=== PATIENT | female | born 1945 | race Caucasian/White ===

== ENCOUNTER 2023-09-27 12:08 | Emergency (ER) | payer MEDICARE, OTHER, SELFPAY ==
[2023-09-27 12:11] VITALS: BP 145/74
--- NOTE | 2023-09-27 13:28 | ED.GENMED ---
History of Present Illness
General
Chief Complaint: Musculo-Skeletal Complaint
Source: patient and spouse
Exam Limitations: none
Time Seen by Provider: 09/27/23 12:34
Nursing documentation reviewed up to this point in time: agreed with
Travel History
Have you had any contact with someone who has COVID-19?: No
Do you have any symptoms of coronavirus? Fever > 100 degrees, chills, cough, shortness of breath, sore throat, loss of taste or smell, muscle aches, or headache?: No
History of Present Illness
History of Present Illness:
78-year-old female with past medical history of hypothyroidism who presents to the emergency department with her for evaluation of left facial pain. Patient reports that she has had this issue for a year or 2�initially she says that she
thought it was related to an issue with a left lower tooth which was extracted about a year ago. She had transient improvement in her symptoms but over the past few months they have returned and over the past month in particular have become more
intense and more frequent. Today she says she had greater than 10 episodes of this pain and finally came to the emergency room to be assessed. Pain is located in the left lower face along the jawline. She describes a sharp, 'electric shock' pain
which is 10/10 intensity but only last for a second or 2. There is no clear trigger and no relieving factors noted�she was prescribed gabapentin which has not helped and in fact symptoms have been worsening while on gabapentin. She denies any jaw
claudication or pain with chewing. She denies any dental trauma. She denies any radiation of the pain to the neck or the chest. She denies any change in her vision. She says that in between episodes she has no symptoms at all�no numbness or
paresthesias and she has not had any rash. She denies any other complaints. She says she is supposed to see a neurologist but was not able to get an appointment for months.
Review of Systems
Review of Systems
All Other Systems: ROS reviewed and negative except as documented in HPI and ROS
Constitutional: Denies fever or chills
EENT: Reports other (Facial pain); Denies sore throat or runny nose
Respiratory: Denies cough or trouble breathing
Cardiac: Denies chest pain or palpitations
ABD/GI: Denies abdominal pain, nausea or vomiting
: Denies flank pain
Musculoskeletal: Denies neck pain or back pain
Neurological: Denies headache, weakness or numbness
Phy Exam
Physical Exam
Physical Exam:
General: Awake, alert, oriented x3; no acute distress
Head: Normocephalic, atraumatic; she has no facial swelling or reproducible tenderness including along the TMJ joint
Eyes: Conjunctiva normal, EOMI, pupils equal round and reactive to light bilateral
Ears: TMs clear bilaterally, no swelling or tenderness of the mastoid processes
Throat: Airway intact, handling secretions; patient has good dentition, no tenderness to percussion of any teeth on the left side in the area of concern, no dental caries
Neck: Trachea midline, supple without meningismus
Lungs: Clear to auscultation bilaterally, no wheezing, rales, rhonchi
Heart: Regular rate and rhythm, no murmurs, gallops, or rubs
Neuro: Cranial nerves intact 2 through 12, speech fluid with no dysarthria, motor and sensory function intact in all extremities
Skin: no rash
Extremities: Warm and well-perfused
Scores
Heart Failure Risk
Heart Failure Risk Score: Not Applicable
Heart Score for Chest Pain Patients
STEMI patient?: Not applicable
Withdrawal Assessment of Alcohol
Withdrawal Assessment Completed?: Not applicable
Course
Orders/Labs/Results
Orders:
Orders
09/27/23 12:14
EKG [Electrocardiogram (*1)] Urgent
Reason for Study: Fatigue / Weakness
09/27/23 12:15
EKG- Treatment ONCE
09/27/23 12:41
Electrocardiogram (*1) Urgent
Reason for Study: Other
Other Reason for Exam: jaw pain
09/27/23 13:22
MR Brain W/o & With Contrast Urgent
Reason For Exam: left facial pain, headache (requested by neurology
Recent pill cam endoscopy?: No
09/27/23 13:23
NEUROLOGY CONSULT Urgent
Consulting Provider: La Nena Bernstein
Was physician already notified: Yes
Carbamazepine [Tegretol] 100 mg PO ONCE ONE
09/27/23 13:29
Complete Blood Count/With Diff Urgent
Comprehensive Metabolic Panel Urgent
Troponin I Urgent
09/27/23 15:31
[facility] [[facility]] Routine
Comment:
Reason For Exam: rule out MVA
OK for patient to be off Cardiac Monitoring for MRI: No
Recent pill cam endoscopy?: No
Abnormal Lab Results
09/27/23
13:29
MPV 11.1 H fL
(7.4-10.4)
Lymphocytes % 19.2 L %
(20.5-51.1)
BUN 26 H mg/dl
(7-17)
Glucose 104 H mg/dl
(70-99)
09/27/23 13:29
09/27/23 13:29
Vital Signs
Initial and Last Documented VS:
Initial Vital Signs
Temp Pulse Resp BP Pulse Ox
36.6 C 61 16 145/74 100
09/27/23 12:11 09/27/23 12:11 09/27/23 12:11 09/27/23 12:11 09/27/23 12:11
Last Documented Vital Signs
Temp Pulse Resp BP Pulse Ox
36.6 C 59 18 133/73 98
09/27/23 12:11 09/27/23 16:00 09/27/23 14:38 09/27/23 16:19 09/27/23 16:00
MDM/Problems Addressed
Differential Diagnosis Includes:
TMJ, trigeminal neuralgia, dental abscess
MDM/Problems Addressed:
78-year-old female presents for intermittent intense pains in the left lower face�has had this issue sporadically for a year to but much more intense over the past month and much more frequent recently. Today had over 10 episodes. She has been
started on gabapentin but this has not been controlling her symptoms. She has been scheduled to see a neurologist but not for a few months. Vital signs here significant for marginal hypertension otherwise unremarkable. Physical exam as above.
Case discussed with neurology they will evaluate at bedside requesting order for MRI brain, will place an IV send basic labs. Will treat with Tegretol. Reassess after the above.
Labs reviewed and show no clinically significant abnormalities. MRI done awaiting read. Neurology evaluated patient�if MRI normal recommended starting patient on Tegretol 100 mg twice daily with titration to 200 mg twice daily as tolerated based
on facial pain level. Recommending continuing gabapentin 300 mg nightly with ultimate plan to wean off of this. Also recommended sumatriptan 3 mg subcu as needed for rescue therapy. They will follow-up with patient as outpatient in 2 to 3 weeks.
Patient very comfortable with this plan, will monitor pending MRI read.
MRI patient found to have incidental finding of meningioma but no clinically significant abnormalities. Discussed with neurology will discharge with outpatient follow-up in the next 2 to 3 weeks with medication plan as above. I discussed this with
patient she feels very comfortable this plan. Spoke about return precautions all questions answered.
*Radiology
Radiology exam reviewed: radiology read reviewed
*Pulse Oximetry
Patient hypoxic: no
*EKG
Interpreted by ED Provider?: Yes
Heart Rate: 55
Rate: normal
Rhythm: sinus
Simms: normal axis
Interval: normal interval
QRS Pattern: normal QRS
Ischemia: no ischemia (Baseline wander)
*Critical Care Note
Total Time (30-74mins, 75-104mins- exclusive of procedures): Not Applicable
Data Reviewed
Source: patient and spouse
Patient Management
Discussion with other providers: Certified Hyperbaric Technician (Discussed with neurology)
ED Attending Note
-
Portions of this chart may have been created with voice recognition software.� Occasional wrong word or��sound alike� substitutions may have occurred due to the inherent limitations of voice recognition software.
Discharge Plan
Departure
Patient Disposition: Home (Routine Discharge)
Date of Disposition: 09/27/23
Time of Disposition: 17:01
Patient with high blood pressure during this ER visit?: Yes
Discharge Problem:
Trigeminal neuralgia
Instructions: Trigeminal neuralgia
Prescriptions:
New
carbamazepine 200 mg tablet
100 mg PO BID Qty: 60 0RF
sumatriptan succinate 3 mg/0.5 mL pen injector
3 mg SC Q1H PRN (Reason: migraine headache) Qty: 2 0RF
No Action
acitretin 10 MG capsule
20 mg PO DAILY
levothyroxine [Levoxyl] 88 MCG tablet
88 mcg PO DAILY
vitamin B complex 1 TAB tablet
1 tab PO DAILY
cholecalciferol (vitamin D3) 2,000 UNITS tablet
2,000 units PO DAILY
Biotin
1 tab PO DAILY
Calcium
1,000 mg PO DAILY
Patient Comments:
with magnesium
mupirocin 1 APPLIC ointment
1 applic topical BID Qty: 1 0RF
sennosides [senna] 1 TABLET tablet
2 tab PO BID PRN (Reason: constipation) 0RF
acetaminophen 325 MG tablet
650 mg PO Q4HWA 0RF
aspirin 325 MG tablet
325 mg PO DAILY 0RF
Rx Instructions:
take with food
prochlorperazine maleate 5 MG tablet
5 mg PO Q6HPRN PRN (Reason: nausea/vomiting) Qty: 30 0RF
pantoprazole 40 MG tablet,delayed release (DR/EC)
40 mg PO HS Qty: 30 0RF
prednisone 10 MG tablet
40 mg PO TAPER Qty: 20 0RF
Rx Instructions:
take with food
tramadol 50 MG tablet
50 mg PO Q6HPRN PRN (Reason: moderate-severe pain) Qty: 50 0RF
Rx Instructions:
1 tab moderate pain or 2 if pain severe
Dx joint replacement
ongoing therapy
tizanidine 4 MG tablet
4 mg PO HS Qty: 10 0RF
nabumetone 750 MG tablet
750 mg PO DAILY Qty: 0 0RF
Rx Instructions:
RESUME WHEN PREDNISONE IS D/C
TAKE WITH FOOD
Referrals:
Chiara Pineda PA [Family Provider] -
La Nena Bernstein MD [Active] - Call in 1-3 days for appt
Activity Restrictions/Additional Instructions:
Thank you for visiting the Emergency Department at [facility].
1. Please schedule a follow up appointment as directed. Call first thing tomorrow morning to make an appointment.
2. If indicated, please take your medications as instructed and indicated on discharge paperwork.
3. If any of your symptoms do not improve, or persist, or become more severe within 6-12 hours, please return to the emergency department for further care.
4. Please return to the emergency department if you develop a headache, neck pain/stiffness, fever greater than 100.4F, chest pain, shortness of breath, persistent nausea, vomiting, slurred speech, difficulty walking, numbness/tingling, weakness,
signs of infection or any other symptoms that are worrisome to you.
Please call [phone] if you have any questions.
Interventions
Interventions:
*Risk Screen - Suicide Last Done: 09/27/23 12:11
*General Assessment Last Done: 09/27/23 12:11
*Neglect/Abuse Screening Last Done: 09/27/23 12:11
*ED COVID-19 Vaccine History Last Done: 09/27/23 14:38
ED-Musculoskeletal Assessment Last Done: 09/27/23 16:00
[2023-09-27 13:42] LABS: % Basophils 0.7 % (0-2); % Eosinophils 1.6 % (0-6); % Immature Granulocytes 0.2 % (0-0.5); % Lymphocytes 19.2 % (20.5-51.1); % Monocytes 4.9 % (1.7-9.3); % Neutrophils 73.4 % (42.2-75.2); Absolute Basophils 0.1 10^3/uL (0-0.2); Absolute Eosinophils 0.1 10^3/uL (0-0.7); Absolute Lymphocytes 1.6 10^3/uL (1.2-3.4); Absolute Monocytes 0.4 10^3/uL (0.1-0.6); Absolute Neutrophils 6.1 10^3/uL (1.4-6.5); Hematocrit 40.5 % (37.0-47.0); Hemoglobin 13.7 g/dL (12.0-16.0); Mean Corp Hgb Conc. 33.8 g/dL (33.0-37.0); Mean Corpuscular Hgb 29.9 pg (27.0-31.0); Mean Corpuscular Volume 88.4 fL (81.0-99.0); Mean Platelet Volume 11.1 fL (7.4-10.4); Nucleated Red Blood Cells % 0 %; Platelet Count 191 10^3/uL (130-400); Red Blood Cell Count 4.58 10^6/uL (4.20-5.40); Red Cell Dist. Width 12.2 % (11.5-14.5); White Blood Cell Count 8.3 10^3/uL (4.8-10.8)
[2023-09-27 13:56] LABS: ALT (SGPT) 22 U/L (0-35); AST (SGOT) 29 U/L (14-36); Albumin 4.3 g/dl (3.5-5.0); Alkaline Phosphatase 57 U/L (38-126); Blood Urea Nitrogen 26 mg/dl (7-17); Calcium 9.1 mg/dl (8.4-10.2); Carbon Dioxide 25 mmol/L (22-30); Chloride 107 mmol/L (98-107); Glucose 104 mg/dl (70-99); Potassium 5.1 mmol/L (3.5-5.1); Sodium 137 mmol/L (135-145); Total Bilirubin 0.6 mg/dl (0.2-1.3); Total Protein 6.4 g/dl (6.3-8.2); eGFR > 60.00
[2023-09-27 14:05] LABS: Troponin I < 0.012 ng/ml
[2023-09-27] MEDS: TEGRETOL 100 MG PO (14:24)
[2023-09-27 14:38] VITALS: BP 139/78
--- NOTE | 2023-09-27 14:56 | CON.NEURO ---
Consultation
Order
Date of Consultation: 09/27/23
Reason for Consult: Trigeminal neuralgia
Neurology consultation note
CC: Facial pain
HPI: This is a 78-year-old left-handed woman who presented to [facility] on September 27, 2023 for an evaluation and management of facial pain. According to the patient she has had intermittent short lasting stabbing severe left
maxillary pain that she has had over the last several years. No clear triggers. The pain had improved after left upper molar extraction however returned several weeks ago. The pain has been refractory to recently prescribed gabapentin leading the
patient to seek medical attention. No reports of dysphagia, dysphonia, diplopia weakness, change in balance, ipsilateral cranial autonomic symptoms.
ER VS: 145/74, 61, afebrile
PDMP:Acetaminophen-Cod #3 15 tabs filled in on 08/22/2022.
Labs: Sodium�normal, glucose�104, normal WBCs, calcium.
PMH: h/o melanoma, papillary thyroid carcinoma, psoriasis, migraine without aura, HTN, DLP, hypothyroidism, OA, BL SNHL
PSH: Bilateral cataract surgery R TKA, thyroidectomy, appendectomy, cholecystectomy, left shoulder rotator cuff repair; Mohs procedure
SH: , retired educator, non-smoker, plus social alcohol use.
FH: Coronary artery disease
All: Sulfas, aspartame
ROS:Constitutional: Negative. Negative for chills, fever and unexpected weight change.
HENT: Positive for chronic hearing impairment and tinnitus
Eyes: Negative. Negative for photophobia, pain and visual disturbance.
Respiratory: Negative for cough, choking and shortness of breath.
Cardiovascular: Negative for chest pain, palpitations and leg swelling.
Gastrointestinal: Negative for abdominal pain and vomiting.
Endocrine: Negative. Negative for cold intolerance.
Genitourinary: Negative for dysuria, flank pain and urgency.
Musculoskeletal: Positive for arthralgias
Skin: Negative for rash.
Allergic/Immunologic: Negative. Negative for immunocompromised state.
Neurological: Positive for chronic left V2 pain and intermittent migraine
Psychiatric/Behavioral: Negative for behavioral problems, confusion and hallucinations.
General: Well developed. In moderate distress due to pain
Cardio: Regular rate and rhythm without murmur. Extremities are without cyanosis or edema.
Neuro:
Mental Status: Alert, oriented to person, place, and date. Normal attention and recall. Good fund of knowledge. Follows complex requests across the midline. Comprehension, naming, and repetition intact. Immediate and delayed recall 3/3.
Cranial Nerves: . Pupils are equally round, surgical. EOMs full. Visual ibrahim full to confrontation. No ptosis. No nystagmus. V1-V3 intact to light touch and pinprick bilaterally, symmetric. Face symmetric. Poor hearing AU. The palate
elevated well. SCMs and traps 5/5. Tongue midline. No dysarthria.
Motor: Normal bulk and tone. No pronator or arm drift. Strength 5/5 throughout. No clonus.
Reflexes: 2+ throughout the upper extremities and knees. Plantar responses flexor bilaterally.
Sensory: Normal LT
Coordination: No dysmetria or tremor.
Gait: deferred
Assessment and Plan:
I. 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
short-lasting unilateral neuralgiform headache.
II. Migraine with aura
III. History of melanoma, papillary thyroid carcinoma
-Please start Tegretol 100 mg twice daily with titration to 200 mg twice daily as tolerated based on facial pain level. Most common side effects of Tegretol including Felix-Hunter syndrome were discussed.
-Monitor for hyponatremia, granulocytopenia
-Continue Neurontin 300 mg nightly with a plan to wean off (goal is monotherapy)
-Sumatriptan 3 mg SubQ PRN for rescue therapy PRN
-MRI of the brain with gadolinium/MRA of the head without gadolinium to rule out cerebellopontine angle tumor/mets, arteriovenous malformation
-Outpatient neurology follow-up in 2 to�3 weeks.
I personally reviewed all radiology and labs along with past medical records pertinent to current medical problems. Total time spent in patient care is 60 minutes.
Thank you for allowing us to participate in the care of this patient. We will continue to follow. Please do not hesitate to contact us with any questions or concerns.
Subjective/Objective
Subjective Data
Date of Service: September 27, 2023
Objective Data
Vital Signs
Temp Pulse Resp BP Pulse Ox
36.6 C 65 18 139/78 98
09/27/23 12:11 09/27/23 14:38 09/27/23 14:38 09/27/23 14:38 09/27/23 14:38
Lab Results
09/27/23 13:29
09/27/23 13:29
Sodium 137 mmol/L (135-145) 09/27/23 13:29
Potassium 5.1 mmol/L (3.5-5.1) 09/27/23 13:29
BUN 26 mg/dl (7-17) H 09/27/23 13:29
Glucose 104 mg/dl (70-99) H 09/27/23 13:29
Calcium 9.1 mg/dl (8.4-10.2) 09/27/23 13:29
Patient Allergies
aspartame [Aspartame] Allergy (Verified 09/27/23 12:10)
headache
Sulfa (Sulfonamide Antibiotics) Allergy (Verified 09/27/23 12:10)
headache
sulfabenzamide Allergy (Verified 09/27/23 12:10)
HEADACH
sulfisoxazole Allergy (Verified 09/27/23 12:10)
headache
Medications
-
Home Medications
Medication Instructions Recorded
Biotin 1 tab PO DAILY 05/23/21
Calcium 1,000 mg PO DAILY 05/23/21
acitretin 10 mg capsule 20 mg PO DAILY 05/23/21
cholecalciferol (vitamin D3) 50 2,000 units PO DAILY 05/23/21
mcg (2,000 unit) tablet
levothyroxine 88 mcg tablet 88 mcg PO DAILY 05/23/21
(Levoxyl)
vitamin B complex 1 tab PO DAILY 05/23/21
mupirocin 2 % topical ointment 1 applic topical BID #1 tube 05/25/21
acetaminophen 325 mg tablet 650 mg PO Q4HWA 06/15/21
aspirin 325 mg tablet 325 mg PO DAILY 06/15/21
nabumetone 750 mg tablet 750 mg PO DAILY ##0 06/15/21
pantoprazole 40 mg tablet,delayed 40 mg PO HS #30 tabs 06/15/21
release
prednisone 10 mg tablet 40 mg PO TAPER ##20 06/15/21
prochlorperazine maleate 5 mg 5 mg PO Q6HPRN PRN nausea/vomiting 06/15/21
tablet #30 tabs
sennosides 8.6 mg tablet (senna) 2 tab PO BID PRN constipation 06/15/21
tizanidine 4 mg tablet 4 mg PO HS #10 tabs 06/15/21
tramadol 50 mg tablet 50 mg PO Q6HPRN PRN 06/15/21
moderate-severe pain #50 tabs
Vital Signs and Labs
-
Vital Signs and Labs:
Vital Signs
Temp Pulse Resp BP Pulse Ox
36.6 C 65 18 139/78 98
09/27/23 12:11 09/27/23 14:38 09/27/23 14:38 09/27/23 14:38 09/27/23 14:38
Lab Results
09/27/23 13:29
09/27/23 13:29
Sodium 137 mmol/L (135-145) 09/27/23 13:29
Potassium 5.1 mmol/L (3.5-5.1) 09/27/23 13:29
BUN 26 mg/dl (7-17) H 09/27/23 13:29
Glucose 104 mg/dl (70-99) H 09/27/23 13:29
Calcium 9.1 mg/dl (8.4-10.2) 09/27/23 13:29
Home Medications
-
Home Medications
Biotin 1 tab PO DAILY 05/23/21
Calcium 1,000 mg PO DAILY 05/23/21
acitretin 10 mg capsule 20 mg PO DAILY 05/23/21
cholecalciferol (vitamin D3) 50 mcg (2,000 unit) tablet 2,000 units PO DAILY 05/23/21
levothyroxine 88 mcg tablet (Levoxyl) 88 mcg PO DAILY 05/23/21
vitamin B complex 1 tab PO DAILY 05/23/21
mupirocin 2 % topical ointment 1 applic topical BID #1 tube 05/25/21
acetaminophen 325 mg tablet 650 mg PO Q4HWA 06/15/21
aspirin 325 mg tablet 325 mg PO DAILY 06/15/21
nabumetone 750 mg tablet 750 mg PO DAILY ##0 06/15/21
pantoprazole 40 mg tablet,delayed release 40 mg PO HS #30 tabs 06/15/21
prednisone 10 mg tablet 40 mg PO TAPER ##20 06/15/21
prochlorperazine maleate 5 mg tablet 5 mg PO Q6HPRN PRN nausea/vomiting #30 tabs 06/15/21
sennosides 8.6 mg tablet (senna) 2 tab PO BID PRN constipation 06/15/21
tizanidine 4 mg tablet 4 mg PO HS #10 tabs 06/15/21
tramadol 50 mg tablet 50 mg PO Q6HPRN PRN moderate-severe pain #50 tabs 06/15/21
[2023-09-27 16:00] VITALS: BMI 29.3
[2023-09-27 16:19] VITALS: BP 133/73
[2023-09-27 17:00] VITALS: BP 149/82
== END 2023-09-27 17:36 | disposition home or self-care (01) ==
LOC: EMR 12:08
PROVIDERS: CONSULT PHYSICIAN Psychiatry & Neurology Neurology; EMERGENCY PHYSICIAN Emergency Medicine; FAMILY PHYSICIAN Physician Assistant Medical
DX: G50.0 Trigeminal neuralgia (principal); I10 Essential (primary) hypertension
CPT/HCPCS: 99285; 70544; 70553; 80053; 84484; 85025; 93005; A9575

== ENCOUNTER → 2024-02-18 14:32 | Outpatient (REF) | payer MEDICARE, OTHER, SELFPAY | LOC: HWRAD 14:32 | PROVIDERS: ATTENDING PHYSICIAN Physician Assistant Medical | DX: M54.6 Pain in thoracic spine (principal) | CPT/HCPCS: 72072 ==

== ENCOUNTER 2024-11-17 06:18 | Day surgery (SDC) | payer MEDICARE, OTHER, SELFPAY | END 2024-11-17 15:11 | disposition home or self-care (01) | LOC: GI 06:18 | PROVIDERS: ATTENDING PHYSICIAN Internal Medicine Gastroenterology | DX: Z12.11 Encounter for screening for malignant neoplasm of colon (principal); K58.1 Irritable bowel syndrome with constipation; K64.8 Other hemorrhoids; K57.30 Diverticulosis of large intestine without perforation or abscess without bleeding; Z86.0100 Personal history of colon polyps, unspecified | CPT/HCPCS: G0105 ==

== ENCOUNTER → 2024-12-01 16:16 | Outpatient (REF) | payer MEDICARE, OTHER, SELFPAY | LOC: HWRAD 16:16 | PROVIDERS: ATTENDING PHYSICIAN Physician Assistant Medical | DX: M25.552 Pain in left hip (principal) | CPT/HCPCS: 73502 ==

== ENCOUNTER → 2024-12-07 14:19 | Outpatient (REF) | payer MEDICARE, OTHER, SELFPAY | LOC: MRI 14:19 | PROVIDERS: ATTENDING PHYSICIAN Specialist; FAMILY PHYSICIAN Physician Assistant Medical | DX: D32.1 Benign neoplasm of spinal meninges (principal) | CPT/HCPCS: 70553; A9575 ==

== ENCOUNTER → 2025-04-29 06:58 | Outpatient (REF) | payer MEDICARE, OTHER, SELFPAY | LOC: PAVMRI 06:58 | PROVIDERS: ATTENDING PHYSICIAN Physician Assistant; FAMILY PHYSICIAN Physician Assistant Medical | DX: M25.552 Pain in left hip (principal) | CPT/HCPCS: 73721 ==